=== PATIENT | female | born 1970 ===

== ENCOUNTER 2021-04-12 11:00 | Inpatient (IN) | payer OTHER ==
[~2021-04-12] VITALS: Ht 149.9 cm; Wt 86.2 kg
[2021-04-12] MEDS ORDERED: METFORMIN HCL500 M3 PO (13:48)
== END 2021-04-22 17:17 | disposition home or self-care (01) | DRG 330 ==
LOC: SURH 04-19 05:44 → O/R 04-19 05:44 → SURG 04-19 11:00 → O/R 04-19 11:17 → SURH 04-19 13:02 → SURG 04-19 17:30 → SURH 04-22 17:17
PROVIDERS: ADMIT Colon & Rectal Surgery; ATTEND Colon & Rectal Surgery
PROC: 0DBN0ZZ Excision of Sigmoid Colon, Open Approach (ICD-10-PCS; 2021-04-19)
PROC: 0DJD8ZZ Inspection of Lower Intestinal Tract, Via Natural or Artificial Opening Endoscopic (ICD-10-PCS; 2021-04-19)
PROC: 4A033R1 Measurement of Arterial Saturation, Peripheral, Percutaneous Approach (ICD-10-PCS; 2021-04-19)
PROC: 3E0F7SF Introduction of Other Gas into Respiratory Tract, Via Natural or Artificial Opening (ICD-10-PCS; 2021-04-19)
PROC: 3E0F7GC Introduction of Other Therapeutic Substance into Respiratory Tract, Via Natural or Artificial Opening (ICD-10-PCS; 2021-04-19)
PROC: 4A12X4Z Monitoring of Cardiac Electrical Activity, External Approach (ICD-10-PCS; 2021-04-19)
PROC: 0DBP0ZZ Excision of Rectum, Open Approach (ICD-10-PCS; principal; 2021-04-19 17:30)
DX: K57.32 Diverticulitis of large intestine without perforation or abscess without bleeding (principal); K92.1 Melena; J45.20 Mild intermittent asthma, uncomplicated; G47.33 Obstructive sleep apnea (adult) (pediatric); E11.9 Type 2 diabetes mellitus without complications; E66.9 Obesity, unspecified; Z20.822 Contact with and (suspected) exposure to COVID-19

== ENCOUNTER 2021-05-24 09:45 | Emergency (ER) | payer OTHER ==
[~2021-05-24] VITALS: Ht 149.9 cm; Wt 81.2 kg
[~2021-05-24 09:45] MED LIST: METFORMIN HCL500 M3 PO
== END 2021-05-24 16:18 | disposition home or self-care (01) ==
LOC: ER 09:45
DX: K57.32 Diverticulitis of large intestine without perforation or abscess without bleeding (principal); R10.9 Unspecified abdominal pain; R11.2 Nausea with vomiting, unspecified